=== PATIENT | female | born 1995 | race Caucasian/White ===

== ENCOUNTER 2024-03-12 15:24 | Emergency (ER) | payer OTHER ==
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
[2024-03-12 16:32] VITALS: TEMP 98.1
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
[2024-03-12 17:28] VITALS: RESP 16
[2024-03-12 17:46] VITALS: BP 128/70; PULSE 70; O2SAT 98
== END 2024-03-12 17:48 | disposition home or self-care (01) ==
LOC: ED 15:24
DX: S63.501A Unspecified sprain of right wrist, initial encounter (principal); S80.11XA Contusion of right lower leg, initial encounter; V40.5XXA Car driver injured in collision with pedestrian or animal in traffic accident, initial encounter; Z79.899 Other long term (current) drug therapy
CPT/HCPCS: 73110; 73590; 99283; 99285